=== PATIENT | male | born 1960 | race American Indian/Alaskan Native ===

== ENCOUNTER 2020-02-22 11:26 | Emergency (ER) | payer BC ==
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
== END 2020-02-22 12:05 | disposition home or self-care (01) ==
LOC: JD.ED 11:26
DX: K04.7 Periapical abscess without sinus (principal)
CPT/HCPCS: 99282; 99283